=== PATIENT | female | born 1995 | race Caucasian/White ===

== ENCOUNTER 2016-11-17 19:58 | Emergency (ER) | payer OTHER ==
[~2016-11-17] VITALS: Ht 162.6 cm; Wt 65.8 kg
[2016-11-17 20:01] VITALS: BP 136/90
--- NOTE | 2016-11-17 20:42 | NUR ---
PT TAKEN TO OF
--- NOTE | 2016-11-17 21:19 | NUR ---
Dr. Sarmiento evaluating patient
--- NOTE | 2016-11-17 21:33 | NUR ---
PT TAKEN TO XRAY
[2016-11-17 22:00] VITALS: BP 122/61
--- NOTE | 2016-11-17 22:00 | NUR ---
Patient discharged with v/s stable. Written and verbal after care instructions given and explained. Patient alert, oriented and verbalized understanding of instructions. Ambulatory with steady gait. All questions addressed prior to discharge. ID band removed. Patient advised to follow up with PMD. Rx of Guaiatussin AC given. Patient educated on indication of medication including possible reaction and side effects. Opportunity to ask questions provided and answered.
== END 2016-11-17 22:00 | disposition home or self-care (01) ==
LOC: MED 19:58
DX: R05 Cough (principal); R09.81 Nasal congestion; R03.0 Elevated blood-pressure reading, without diagnosis of hypertension
CPT/HCPCS: 71010; 99283